=== PATIENT | female | born 2000 | race Caucasian/White ===

== ENCOUNTER 2023-08-07 12:35 | Outpatient (CLI) | payer MEDICAID | END 2023-08-07 12:36 | disposition home or self-care (01) | LOC: CSHULT 12:35 | PROVIDERS: ATTEND Advanced Practice Midwife | DX: Z34.02 Encounter for supervision of normal first pregnancy, second trimester (principal); Z3A.26 26 weeks gestation of pregnancy | CPT/HCPCS: 76805 ==

== ENCOUNTER 2023-08-31 23:20 | Day surgery (SDC) | payer MEDICAID ==
[2023-08-31] MEDS ORDERED: hydrALAZINE 20 MG/ML VIAL SLOW IVP PRN (23:55)
[2023-08-31 23:58] VITALS: BMI 31.6
== END 2023-09-01 00:58 | disposition home or self-care (01) ==
LOC: CSHLD/OP 23:20
PROVIDERS: ATTEND Family Medicine
DX: O36.8130 Decreased fetal movements, third trimester, not applicable or unspecified (principal); Z3A.30 30 weeks gestation of pregnancy; Z79.899 Other long term (current) drug therapy
CPT/HCPCS: 76819; 99282